=== PATIENT | male | born 1940 | race Caucasian/White ===

== ENCOUNTER 2018-01-30 09:03 | Observation (INO) | payer MEDICARE, OTHER ==
[~2018-01-30] VITALS: Ht 177.8 cm; Wt 114.0 kg
[2018-01-30] VITALS (9 sets, daily range): BP systolic 152–164; BP diastolic 54–70; PULSE 78–90; RESP 16–24; TEMP 96.4–98.6; O2SAT 90–98
[~2018-01-30 09:03] MED LIST: ALLO100 PO; AMLO5TAB2 PO; ASPI-183 PO; BYST5TAB2 PO; CYAN100 PO; LIPI80TA PO; LOTE40TA PO; MAGN400T2 PO; TAMS0.4C4 PO; VITA100064 PO
[2018-01-30 09:30] LABS: BILIRUBIN, URINE NEG (NEG); BLOOD, URINE MOD (NEG); GLUCOSE,URINE 100 mg/dL (NEG); KETONE, URINE NEG (NEG); NITRITE,URINE POS (NEG); URINE COLOR ORANGE (YELLW/STRAW); URINE LEUKOCYTE ESTERASE LARGE (NEG)
[2018-01-30] MEDS ORDERED: SODIUM CHLORIDE 0.9% FLUSH 10 ML FLUSH IV FLUSH PRN ×2 (09:30→11:00)
[2018-01-30] MEDS ORDERED: cefTRIAXone INJ 1,000 MG in SODIUM CHLORIDE 0.9% INJ 100 ML IV ONE (09:30)
[2018-01-30 09:38] LABS: AMORPHOUS SEDIMENT, URINE FEW; BACTERIA, URINE MOD /hpf; SQUAMOUS EPITHELIAL CELL URINE 0-5 /hpf (0-5); WBC, URINE INNUM /hpf (0-5); WHITE BLOOD CELL CLUMPS MOD
[2018-01-30 09:38] LABS: AUTOMATED NEUTROPHIL # 14.8 TH/MM3 (1.8-7.7); BASOPHIL # 0.2 TH/MM3 (0-0.2); BASOPHIL % 0.9 % (0.0-2.0); EOSINOPHIL # 0.1 TH/MM3 (0-0.4); EOSINOPHIL % 0.7 % (0.0-4.0); HEMATOCRIT 36.5 % (39.0-51.0); HEMOGLOBIN 12.1 GM/DL (13.0-17.0); LYMPH % 10.1 % (9.0-44.0); LYMPHOCYTE # 1.8 TH/MM3 (1.0-4.8); MEAN CELL VOLUME 99.8 FL (80.0-100.0); MEAN CORPUSCULAR HEMOGLOBIN 33.1 PG (27.0-34.0); MEAN CORPUSCULAR HGB CONC 33.2 % (32.0-36.0); MEAN PLATELET VOLUME 7.6 FL (7.0-11.0); MONO % 6.4 % (0.0-8.0); MONOCYTE # 1.2 TH/MM3 (0-0.9); NEUT % 81.9 % (16.0-70.0); PLATELET COUNT 310 TH/MM3 (150-450); RED BLOOD COUNT 3.66 MIL/MM3 (4.50-5.90); RED CELL DISTRIBUTION WIDTH 14.6 % (11.6-17.2); WHITE BLOOD COUNT 18.1 TH/MM3 (4.0-11.0)
[2018-01-30 09:54] LABS: ALBUMIN 3.1 GM/DL (3.4-5.0); BICARBONATE 21.7 MEQ/L (21.0-32.0); CALCIUM 8.4 MG/DL (8.5-10.1); GLUCOSE,RANDOM 192 MG/DL (74-106)
[2018-01-30 09:55] LABS: CHLORIDE 104 MEQ/L (98-107); SODIUM (NA) 136 MEQ/L (136-145)
[2018-01-30 09:57] LABS: ALT (GPT) 48 U/L (12-78); GLOMERULAR FILTRATION RATE 49 ML/MIN (>89)
[2018-01-30 09:59] LABS: TOTAL BILIRUBIN ADULT 0.7 MG/DL (0.2-1.0); TOTAL PROTEIN 7.4 GM/DL (6.4-8.2)
[2018-01-30 10:00] LABS: ALKALINE PHOSPHATASE 146 U/L (45-117)
[2018-01-30 10:03] LABS: BLOOD UREA NITROGEN 27 MG/DL (7-18)
[2018-01-30 10:04] LABS: AST (GOT) 29 U/L (15-37)
--- NOTE | 2018-01-30 10:35 | PD ---
HPI Chief Complaint: Complaint Time Seen by Provider: 09:16 Travel History International Travel<30 days: No Contact w/Intl Traveler<30days: No Traveled to known affect area: No History of Present Illness HPI 77 yo male complains of incontinence urinary frequency and dysuria. He reports dark urine. He's had no fever nausea or vomiting. He reports a similar was ultimately diagnosis sepsis. Duration has been about 24 hours. Timing constant. Severity moderate. No evidence of stool. No back pain. PFSH Past Medical History Arthritis: Yes Cancer: Yes (MULTIPLE MYELOMA IN REMISSION, SKIN CA) Cardiac Catheterization: Yes Cardiovascular Problems: Yes (hx of bypass) High Cholesterol: Yes Chest Pain: No COPD: Yes Diabetes: No Endocrine: No Gastrointestinal Disorders: No Genitourinary: Yes (hx of sepsis r/t uti) Hepatitis: No Hiatal Hernia: No Hypertension: Yes Immune Disorder: No Musculoskeletal: Yes (arthritis) Neurologic: No Psychiatric: No Reproductive: No Respiratory: Yes (COPD, sleep apnea, uses o2 prn) Myocardial Infarction: Yes Thyroid Disease: No Tetanus Vaccination: < 5 Years Influenza Vaccination: No Past Surgical History Abdominal Surgery: No AICD: No Cardiac Surgery: Yes (bypass X5, 1998) Coronary Artery Bypass Graft: Yes (5 WAY BYPASS-1998) Ear Surgery: No Endocrine Surgery: No Eye Surgery: Yes (CATARACT REMOVAL AND DETACHED RETINA left eye, right cataract ) Genitourinary Surgery: No Joint Replacement: No Oral Surgery: No Pacemaker: No Thoracic Surgery: No Tonsillectomy: Yes Other Surgery: Yes Social History Alcohol Use: Yes (STATES 1-2 DRINKS DAILY) Tobacco Use: No (quit in 1998 smoked 1 ppd) Substance Use: No Allergies-Medications (Allergen,Severity, Reaction): Coded Allergies: gatifloxacin (Unverified Allergy, Mild, REDNESS, 01/30/18) patient unaware of this allergy. Reported Meds & Prescriptions Reported Meds & Active Scripts Active Reported Zyloprim (Allopurinol) 100 Mg Tab 50 Mg PO HS Lotensin (Benazepril HCl) 40 Mg Tab 40 Mg PO DAILY Vitamin B12 (Cyanocobalamin) Unknown Strength Tab Unknown Dose PO DAILY Vitamin D3 (Cholecalciferol) 1,000 Unit Tab 1,000 Units PO DAILY Magnesium Oxide 400 Mg Tab 400 Mg PO DAILY Lipitor (Atorvastatin Calcium) 80 Mg Tab 80 Mg PO HS Aspirin 325 Mg Tab 325 Mg PO HS Tamsulosin (Tamsulosin HCl) 0.4 Mg Cap 0.4 Mg PO DAILY Amlodipine (Amlodipine Besylate) 5 Mg Tab 5 Mg PO HS Bystolic (Nebivolol) 5 Mg Tab 5 Mg PO HS Review of Systems Except as stated in HPI: all other systems reviewed are Neg Physical Exam Narrative GENERAL: 77-year-old male well-nourished well-developed pleasant Vital Signs Date Time Temp Pulse Resp B/P (MAP) Pulse Ox O2 Delivery O2 Flow Rate FiO2 01/30/18 10:08 78 16 160/54 (89) 93 Nasal Cannula 2.00 01/30/18 09:36 93 Nasal Cannula 2.00 01/30/18 09:35 90 Room Air 01/30/18 09:22 94 Room Air 01/30/18 09:07 98.2 87 20 160/70 (100) 98 SKIN: Warm and dry. HEAD: Atraumatic. Normocephalic. EYES: Pupils equal and round. No scleral icterus. No injection or drainage. ENT: No nasal bleeding or discharge. Mucous membranes pink and moist. NECK: Trachea midline. No JVD. CARDIOVASCULAR: Regular rate and rhythm. RESPIRATORY: No accessory muscle use. Clear to auscultation. Breath sounds equal bilaterally. GASTROINTESTINAL: No significant abdominal tenderness distention. Soft. MUSCULOSKELETAL: Extremities without clubbing, cyanosis, or edema. No obvious deformities. NEUROLOGICAL: Awake and alert. No obvious cranial nerve deficits. Motor grossly within normal limits. Five out of 5 muscle strength in the arms and legs. Normal speech. PSYCHIATRIC: Appropriate mood and affect; insight and judgment normal. Data Data Last Documented VS Vital Signs Date Time Temp Pulse Resp B/P (MAP) Pulse Ox O2 Delivery O2 Flow Rate FiO2 01/30/18 10:58 90 20 158/58 (91) 93 Nasal Cannula 2.00 01/30/18 09:07 98.2 Orders Orders Urinalysis - C+S If Indicated (01/30/18 09:05) Complete Blood Count With Diff (01/30/18 09:16) Comprehensive Metabolic Panel (01/30/18 09:16) Lipase (01/30/18 09:16) Iv Access Insert/Monitor (01/30/18:16) Ecg Monitoring (01/30/18:16) Oximetry (01/30/18 09:16) Ceftriaxone Inj (Rocephin Inj) (01/30/18 09:30) Sodium Chloride 0.9% Flush (Ns Flush) (01/30/18 09:30) Urine Culture (01/30/18 09:10) Admit Order (Ed Use Only) (01/30/18 ) Vital Signs (Adult) Q4H (01/30/18 10:58) Activity Oob With Assistance (01/30/18 10:58) Labs Laboratory Tests Test 01/30/18 09:10 01/30/18 09:30 Urine Collection Type CLEAN CATCH Urine Color ORANGE Urine Turbidity CLOUDY Urine pH 6.0 Urine Specific [place] 1.020 Urine Protein 300 OR GREATER mg/dL Urine Glucose (UA) 100 mg/dL Urine Ketones NEG mg/dL Urine Occult Blood MOD Urine Nitrite POS Urine Bilirubin NEG Urine Urobilinogen MG/DL Urine Leukocyte Esterase LARGE Urine RBC 10-14 /hpf Urine WBC INNUM /hpf Urine WBC Clumps MOD Urine Squamous Epithelial Cells 0-5 /hpf Urine Amorphous Sediment FEW Urine Bacteria MOD /hpf Microscopic Urinalysis Comment CULTURE INDICATED Urine Collection Time 0910 White Blood Count 18.1 TH/MM3 Red Blood Count 3.66 MIL/MM3 Hemoglobin 12.1 GM/DL Hematocrit 36.5 % Mean Corpuscular Volume 99.8 FL Mean Corpuscular Hemoglobin 33.1 PG Mean Corpuscular Hemoglobin Concent 33.2 % Red Cell Distribution Width 14.6 % Platelet Count 310 TH/MM3 Mean Platelet Volume 7.6 FL Neutrophils (%) (Auto) 81.9 % Lymphocytes (%) (Auto) 10.1 % Monocytes (%) (Auto) 6.4 % Eosinophils (%) (Auto) 0.7 % Basophils (%) (Auto) 0.9 % Neutrophils # (Auto) 14.8 TH/MM3 Lymphocytes # (Auto) 1.8 TH/MM3 Monocytes # (Auto) 1.2 TH/MM3 Eosinophils # (Auto) 0.1 TH/MM3 Basophils # (Auto) 0.2 TH/MM3 CBC Comment AUTO DIFF Differential Comment AUTO DIFF CONFIRMED Blood Urea Nitrogen 27 MG/DL Creatinine 1.40 MG/DL Random Glucose 192 MG/DL Total Protein 7.4 GM/DL Albumin 3.1 GM/DL Calcium Level 8.4 MG/DL Alkaline Phosphatase 146 U/L Aspartate Amino Transf (AST/SGOT) 29 U/L Alanine Aminotransferase (ALT/SGPT) 48 U/L Total Bilirubin 0.7 MG/DL Sodium Level 136 MEQ/L Potassium Level 4.6 MEQ/L Chloride Level 104 MEQ/L Carbon Dioxide Level 21.7 MEQ/L Anion Gap 10 MEQ/L Estimat Glomerular Filtration Rate 49 ML/MIN Lipase 118 U/L MDM Medical Decision Making Medical Screen Exam Complete: Yes Emergency Medical Condition: Yes Differential Diagnosis Metabolic disarray, sepsis, UTI Narrative Course CBC & BMP Diagram 01/30/18 09:30 Total Protein 7.4, Albumin 3.1 L, Calcium Level 8.4 L, Alkaline Phosphatase 146 H, Aspartate Amino Transf (AST/SGOT) 29, Alanine Aminotransferase (ALT/SGPT) 48 , Total Bilirubin 0.7 Rocephin started. Admission for ongoing IV antibiotics. d/w Dr Reynoso for [facility]. Diagnosis Primary Impression: UTI (urinary tract infection) Qualified Codes: N39.0 - Urinary tract infection, site not specified; R31.9 - Hematuria, unspecified Admitting Information Admitting Physician Requests: Observation Sylvester Burden MD Jan 30, 2018 10:35
[2018-01-30] MEDS ORDERED: NALOXONE HCL 0.4 MG/ML AMP IV PUSH PRN (11:00)
[2018-01-30] MEDS ORDERED: ONDANSETRON HCL 4 MG/2 ML VIAL IVP PRN (11:00)
[2018-01-30] MEDS ORDERED: MAGNESIUM HYDROXIDE SUSP 30 ML CUP PO PRN (11:00)
[2018-01-30] MEDS: LACTOBACILLUS ACIDOPHILUS TAB PO SCH ×2 (12:02→16:58)
[2018-01-30] MEDS: ENOXAPARIN SODIUM 40 MG/0.4 ML SYRINGE SQ SCH (12:03)
[2018-01-30] MEDS: SODIUM CHLOR 0.9% 1000 ML INJ 1,000 ML IV SCH ×2 (12:03→22:00)
--- NOTE | 2018-01-30 17:42 | HHI.HP ---
[facility] Primary Care Physician Bautista Ortiz MD Admission Diagnosis UTI Diagnoses: (1) UTI (urinary tract infection) Chief Complaint: Dysuria and frequency Travel History International Travel<30 Days: No Contact w/Intl Traveler <30 Da: No Traveled to Known Affected Are: No Sepsis Criteria SIRS Criteria (2 or more): RR > 20 or PaCO2 < 32, WBC > 79464, < 4000 or > 10 % bands Sepsis Criteria (SIRS+source): Infect source susp/known Severe Sepsis (+one): Acute Oliguria/Renal Failure Criteria Outcome: Meets sepsis criteria History of Present Illness This is a pleasant 77-year-old male patient with a known medical history of hyperlipidemia, COPD, CAD with CABG, hypertension and arthritis in multiple myeloma in remission who presented to the ED with complaints of urinary incontinence, frequency and dysuria. Patient states that yesterday afternoon he developed a pain in his bladder, with inability to control his urine. Patient states that the pain was becoming unbearable, rating the pain an 8 out of 10 on pain scale and patient waking up every couple hours during the night. He does report that his urine has been dark. Denies any hematuria. Denies any recent illness including fever, chills, cough, headache, shortness of breath, diarrhea, abdominal pain, nausea or vomiting. Patient has been eating and drinking with good appetite. Patient denies any recent biotic use. Does not follow with urologist. PCP is Dr. Ortiz. [employer] Dr. Jones. Pulmonology Dr. Vivas, has ordered home O2 but does not use it most time. Patient does state one year ago he was in the ICU for admission of complicated UTI. Since that time patient has been doing well. Review of Systems Constitutional: DENIES: Fatigue, Fever, Chills Eyes: DENIES: Blurred vision, Diplopia Respiratory: DENIES: Cough, Sputum production, Shortness of breath Cardiovascular: DENIES: Chest pain Gastrointestinal: DENIES: Abdominal pain, Black stools, Bloody stools, Constipation, Diarrhea, Nausea, Vomiting Genitourinary: COMPLAINS OF: Urinary frequency, Urinary incontinence, Urgency, Dysuria, DENIES: Hematuria Psychiatric: DENIES: Anxiety Except as stated in HPI: all other systems reviewed are Neg Past Family Social History Past Medical History History of UTI Hyperlipidemia COPD with home O2 ordered, patient states he does not use Arthritis Multiple myeloma in remission History of skin cancer CAD with history of CABG Sleep apnea Past Surgical History Left hip replacement Cataract removal CABG 1988 Tonsillectomy Reported Medications Active Reported Zyloprim (Allopurinol) 100 Mg Tab 50 Mg PO HS Lotensin (Benazepril HCl) 40 Mg Tab 40 Mg PO DAILY Vitamin B12 (Cyanocobalamin) Unknown Strength Tab Unknown Dose PO DAILY Vitamin D3 (Cholecalciferol) 1,000 Unit Tab 1,000 Units PO DAILY Magnesium Oxide 400 Mg Tab 400 Mg PO DAILY Lipitor (Atorvastatin Calcium) 80 Mg Tab 80 Mg PO HS Aspirin 325 Mg Tab 325 Mg PO HS Tamsulosin (Tamsulosin HCl) 0.4 Mg Cap 0.4 Mg PO DAILY Amlodipine (Amlodipine Besylate) 5 Mg Tab 5 Mg PO HS Bystolic (Nebivolol) 5 Mg Tab 5 Mg PO HS Allergies: Coded Allergies: gatifloxacin (Unverified Allergy, Mild, REDNESS, 01/30/18) patient unaware of this allergy. Active Ordered Medications Current Medications Medications (Trade) Dose Ordered Sig/Jazzmine Route Start Time Stop Time Status Last Admin Sodium Chloride 1,000 ml @ 100 mls/hr Q10H IV 01/30/18 12:00 01/30/18 12:03 (NS Flush) 2 ml UNSCH PRN IV FLUSH 01/30/18 11:00 (NS Flush) 2 ml BID IV FLUSH 01/30/18 21:00 (Zofran Inj) 4 mg Q6H PRN IVP 01/30/18 11:00 (Lovenox Inj) 40 mg Q24H SQ 01/30/18 12:00 01/30/18 12:03 (Narcan Inj) 0.4 mg UNSCH PRN IV PUSH 01/30/18 11:00 (Milk Of Magnesia Liq) 30 ml Q12H PRN PO 01/30/18 11:00 (Lactinex) 1 tab TID PO 01/30/18 13:00 01/30/18 16:58 Ceftriaxone Sodium 1000 mg/ Sodium Chloride 100 ml @ 200 mls/hr Q24H IV 01/31/18 09:00 (Zyloprim) 50 mg HS PO 01/30/18 21:00 (Norvasc) 5 mg HS PO 01/30/18 21:00 (Aspirin) 325 mg HS PO 01/30/18 21:00 (Vitamin D3) 1,000 units DAILY PO 01/31/18 09:00 (Mag-Ox) 400 mg DAILY PO 01/31/18 09:00 (Bystolic) 5 mg HS PO 01/30/18 21:00 (Flomax) 0.4 mg DAILY PO 01/31/18 09:00 (Prinivil) 40 mg DAILY PO 01/31/18 09:00 (Lipitor) 80 mg HS PO 01/30/18 21:00 Family History Maternal medical history significant for unspecified cancer. Paternal medical history significant for hypertension and from a stroke. Social History Patient denies any current tobacco use, states he quit in 1998 prior to his CABG. Patient does admit to drinking 1-2 alcoholic drinks per day. Denies any illicit drug use. Physical Exam Vital Signs Vital Signs Date Time Temp Pulse Resp B/P (MAP) Pulse Ox O2 Delivery O2 Flow Rate FiO2 01/30/18 16:00 96.4 83 24 164/70 (101) 93 01/30/18 12:00 96.4 87 24 156/69 (98) 95 01/30/18 11:43 01/30/18 10:58 90 20 158/58 (91) 93 Nasal Cannula 2.00 01/30/18 10:08 78 16 160/54 (89) 93 Nasal Cannula 2.00 01/30/18 09:36 93 Nasal Cannula 2.00 01/30/18 09:35 90 Room Air 01/30/18 09:22 94 Room Air 01/30/18 09:07 98.2 87 20 160/70 (100) 98 Physical Exam GENERAL: Well-developed, obese male patient in NAD. On supplemental O2 SKIN: Warm and dry. No rash. HEAD: Normocephalic. Atraumatic. EYES: Pupils equal and round. No scleral icterus. No injection or drainage. ENT: No nasal bleeding or discharge. Mucous membranes pink and moist. NECK: Supple. Trachea midline. CARDIOVASCULAR: Regular rate and rhythm. S1, S2 noted. No murmur appreciated. RESPIRATORY: No accessory muscle use. Clear to auscultation. Breath sounds equal bilaterally. GASTROINTESTINAL: Abdomen soft, non-tender, nondistended. Normoactive bowel sounds x4. : No CVA tenderness bilaterally. MUSCULOSKELETAL: No obvious deformities. Extremities without clubbing, cyanosis , or edema. NEUROLOGICAL: Awake and alert. No obvious cranial nerve deficits. Motor grossly within normal limits. 5/5 muscle strength in bilateral upper and lower extremities. Normal speech. Laboratory Laboratory Tests Test 01/30/18 09:10 01/30/18 09:30 01/30/18 11:15 01/30/18 16:28 Urine Collection Type CLEAN CATCH Urine Color ORANGE Urine Turbidity CLOUDY Urine pH 6.0 Urine Specific [place] 1.020 Urine Protein 300 OR GREATER Urine Glucose (UA) 100 Urine Ketones NEG Urine Occult Blood MOD Urine Nitrite POS Urine Bilirubin NEG Urine Urobilinogen Urine Leukocyte Esterase LARGE Urine RBC 10-14 Urine WBC INNUM Urine WBC Clumps MOD Urine Squamous Epithelial Cells 0-5 Urine Amorphous Sediment FEW Urine Bacteria MOD Microscopic Urinalysis Comment CULTURE INDICATED Urine Collection Time 0910 White Blood Count 18.1 Red Blood Count 3.66 Hemoglobin 12.1 Hematocrit 36.5 Mean Corpuscular Volume 99.8 Mean Corpuscular Hemoglobin 33.1 Mean Corpuscular Hemoglobin Concent 33.2 Red Cell Distribution Width 14.6 Platelet Count 310 Mean Platelet Volume 7.6 Neutrophils (%) (Auto) 81.9 Lymphocytes (%) (Auto) 10.1 Monocytes (%) (Auto) 6.4 Eosinophils (%) (Auto) 0.7 Basophils (%) (Auto) 0.9 Neutrophils # (Auto) 14.8 Lymphocytes # (Auto) 1.8 Monocytes # (Auto) 1.2 Eosinophils # (Auto) 0.1 Basophils # (Auto) 0.2 CBC Comment AUTO DIFF Differential Comment AUTO DIFF CONFIRMED Blood Urea Nitrogen 27 Creatinine 1.40 Random Glucose 192 Total Protein 7.4 Albumin 3.1 Calcium Level 8.4 Alkaline Phosphatase 146 Aspartate Amino Transf (AST/SGOT) 29 Alanine Aminotransferase (ALT/SGPT) 48 Total Bilirubin 0.7 Sodium Level 136 Potassium Level 4.6 Chloride Level 104 Carbon Dioxide Level 21.7 Anion Gap 10 Estimat Glomerular Filtration Rate 49 Lipase 118 Total Creatine Kinase 55 64 Date/Time Source Procedure Growth Status 01/30/18 09:10 Urine Clean Catch Urine Culture Pending Received Result Diagram: [id number] Septic Shock Reassessment Septic shock perfusion: reassessment completed Caprini VTE Risk Assessment Caprini VTE Risk Assessment: Mod/High Risk (score >= 2) Caprini Risk Assessment Model Point Value = 1 Point Value = 2 Point Value = 3 Point Value = 5 Age 41-60 Minor surgery BMI > 25 kg/m2 Swollen legs Varicose veins or History of unexplained or recurrent spontaneous Oral contraceptives or hormone replacement Sepsis (< 1 month) Serious lung disease, including pneumonia (< 1 month) Abnormal pulmonary function Acute myocardial infarction Congestive heart failure (< 1 month) History of inflammatory bowel disease Medical patient at bed rest Age 61-74 Arthroscopic surgery Major open surgery (> 45 min) Laparoscopic surgery (> 45 min) Malignancy Confined to bed (> 72 hours) Immobilizing plaster cast Central venous access Age >= 75 History of VTE Family history of VTE Factor V Leiden Prothrombin [id number] Lupus anticoagulant Anticardiolipin antibodies Elevated serum homocysteine Heparin-induced thrombocytopenia Other congenital or acquired thrombophilia Stroke (< 1 month) Elective arthroplasty Hip, pelvis, or leg fracture Acute spinal cord injury (< 1 month) Prophylaxis Regimen Total Risk Factor Score Risk Level Prophylaxis Regimen 0-1 Low Early ambulation 2 Moderate Order ONE of the following: *Sequential Compression Device (SCD) *Heparin 5000 units SQ BID 3-4 Higher Order ONE of the following medications: *Heparin 5000 units SQ TID *Enoxaparin/Lovenox 40 mg SQ daily (WT < 150 kg, CrCl > 30 mL/min) *Enoxaparin/Lovenox 30 mg SQ daily (WT < 150 kg, CrCl > 10-29 mL/min) *Enoxaparin/Lovenox 30 mg SQ BID (WT < 150 kg, CrCl > 30 mL/min) AND/OR *Sequential Compression Device (SCD) 5 or more Highest Order ONE of the following medications: *Heparin 5000 units SQ TID (Preferred with Epidurals) *Enoxaparin/Lovenox 40 mg SQ daily (WT < 150 kg, CrCl > 30 mL/min) *Enoxaparin/Lovenox 30 mg SQ daily (WT < 150 kg, CrCl > 10-29 mL/min) *Enoxaparin/Lovenox 30 mg SQ BID (WT < 150 kg, CrCl > 30 mL/min) AND *Sequential Compression Device (SCD) Assessment and Plan Assessment and Plan This is a pleasant 77-year-old male patient with a known medical history of hyperlipidemia, COPD, CAD with CABG, hypertension and arthritis in multiple myeloma in remission who presented to the ED with complaints of urinary incontinence, frequency and dysuria. Sepsis suspect secondary to UTI with presence of urinary urgency, incontinence and frequency Abnormal UA suspect secondary to above Acute kidney injury suspect secondary to above Presence of leukocytosis, white blood cell 18,000, tachypnea, source urinary tract UA showing large amount of white blood cells and leukocyte esterase. Urine culture pending. Follow growth. Continue on IV ceftriaxone for now. Will add lactobacillus. Continue IV fluids, ensure hydration. Creatinine 1.4 on presentation. No recent lab work, patient denies any history of chronic kidney disease. Previous history of labs reviewed, creatinine 0.66 in 2016. Follow labs in a.m. Supplemental O2 as needed. Supportive care. Hypertension, chronic: Continue home Bystolic and amlodipine and Lotensin. Monitor BP trends. Systolic in the 160s. Elevated random glucose: Glucose 192. Patient denies any history of diabetes. Hemoglobin A1c pending. Follow. History of CAD with CABG: Continue aspirin. Hyperlipidemia, chronic: Continue home Lipitor. History of BPH: Continue home Flomax. DVT prophylaxis: SCDs. Lovenox. Problem Qualifiers (1) UTI (urinary tract infection): Qualified Codes: N39.0 - Urinary tract infection, site not specified; R31.9 - Hematuria, unspecified Josephine Callaway Jan 30, 2018 17:42
[2018-01-30] MEDS: SODIUM CHLORIDE 0.9% FLUSH 10 ML FLUSH IV FLUSH SCH (20:26)
[2018-01-30] MEDS ORDERED: NEBIVOLOL 5 MG TAB PO SCH (21:00)
[2018-01-30] MEDS ORDERED: ALLOPURINOL 100 MG TAB PO SCH (21:00)
[2018-01-30] MEDS ORDERED: ATORVASTATIN 80 MG TAB PO SCH (21:00)
[2018-01-30] MEDS ORDERED: ATORVASTATIN 40 MG TAB PO SCH (21:00)
[2018-01-30] MEDS ORDERED: ASPIRIN 325 MG TAB PO SCH (21:00)
[2018-01-30] MEDS ORDERED: amLODIPine BESYLATE 5 MG TAB PO SCH (21:00)
[2018-01-30] MEDS ORDERED: RESP: ALBUTEROL 2.5 MG/IPRATROPIUM 0.5 MG NEB (PRN) NEB (21:15)
[2018-01-31 01:41] VITALS: BP 144/73; PULSE 76; RESP 20; TEMP 98; O2SAT 92
[2018-01-31 04:10] VITALS: BP 150/68; PULSE 70; RESP 18; TEMP 98.6; O2SAT 95
[2018-01-31 08:00] VITALS: BP 140/63; PULSE 74; RESP 24; TEMP 96.9; O2SAT 92
[2018-01-31] MEDS: SODIUM CHLOR 0.9% 1000 ML INJ 1,000 ML IV SCH (08:00)
[2018-01-31 08:27] LABS: AUTOMATED NEUTROPHIL # 8.9 TH/MM3 (1.8-7.7); BASOPHIL # 0.1 TH/MM3 (0-0.2); BASOPHIL % 0.4 % (0.0-2.0); EOSINOPHIL # 0.3 TH/MM3 (0-0.4); EOSINOPHIL % 2.3 % (0.0-4.0); HEMATOCRIT 33.7 % (39.0-51.0); LYMPH % 19.1 % (9.0-44.0); LYMPHOCYTE # 2.6 TH/MM3 (1.0-4.8); MEAN CELL VOLUME 99.9 FL (80.0-100.0); MEAN CORPUSCULAR HEMOGLOBIN 32.6 PG (27.0-34.0); MEAN CORPUSCULAR HGB CONC 32.6 % (32.0-36.0); MEAN PLATELET VOLUME 8.3 FL (7.0-11.0); MONO % 12.1 % (0.0-8.0); MONOCYTE # 1.7 TH/MM3 (0-0.9); NEUT % 66.1 % (16.0-70.0); PLATELET COUNT 304 TH/MM3 (150-450); RED BLOOD COUNT 3.37 MIL/MM3 (4.50-5.90); RED CELL DISTRIBUTION WIDTH 14.7 % (11.6-17.2); WHITE BLOOD COUNT 13.6 TH/MM3 (4.0-11.0)
[2018-01-31 08:46] LABS: BICARBONATE 24.3 MEQ/L (21.0-32.0); CALCIUM 8.1 MG/DL (8.5-10.1)
[2018-01-31 08:49] LABS: CREATININE 1.1 MG/DL (0.60-1.30)
[2018-01-31] MEDS ORDERED: MAGNESIUM OXIDE 400 MG TAB PO SCH (09:00)
[2018-01-31] MEDS ORDERED: LISINOPRIL 20 MG TAB PO SCH (09:00)
[2018-01-31] MEDS ORDERED: CHOLECALCIFEROL (VIT D3) 1000 UNIT TAB PO SCH (09:00)
[2018-01-31] MEDS ORDERED: cefTRIAXone INJ 1,000 MG in SODIUM CHLORIDE 0.9% INJ 100 ML IV SCH (09:00)
[2018-01-31] MEDS: SODIUM CHLORIDE 0.9% FLUSH 10 ML FLUSH IV FLUSH SCH (09:00)
[2018-01-31] MEDS ORDERED: TAMSULOSIN HCL 0.4 MG CAP PO SCH (09:00)
[2018-01-31] MEDS: LACTOBACILLUS ACIDOPHILUS TAB PO SCH ×2 (09:15→13:57)
[2018-01-31 10:00] VITALS: O2SAT 96
--- NOTE | 2018-01-31 11:46 | HHI.DCPOC ---
Discharge Care Plan Diagnosis: (1) UTI (urinary tract infection) Goals to Promote Your Health * To prevent worsening of your condition and complications * To maintain your health at the optimal level Directions to Meet Your Goals Take your medications as prescribed Follow your dietary instruction Follow activity as directed Keep your appointments as scheduled Take your immunizations and boosters as scheduled If your symptoms worsen call your PCP, if no PCP go to Urgent Care Center or Emergency Room Smoking is Dangerous to Your Health. Avoid second hand smoke Call the 24-hour hour crisis hotline for domestic abuse at Josephine Callaway Jan 31, 2018 11:46
--- NOTE | 2018-01-31 11:46 | HHI.PR ---
Subjective Remarks Follow-up UTI. Patient seen and examined, lying in bed comfortably, states that his symptoms have improved. Denies any more dysuria or pain. No hematuria noted overnight. Adequate [place]. Afebrile overnight. Vital signs stable. Patient on oxygen as ordered for home. Will resume and have patient follow-up with information security systems instructor. Objective Vitals Vital Signs Date Time Temp Pulse Resp B/P (MAP) Pulse Ox O2 Delivery O2 Flow Rate FiO2 01/31/18 08:00 96.9 74 24 140/63 (88) 92 01/31/18 04:10 98.6 70 18 150/68 (95) 95 01/31/18 01:41 98.0 76 20 144/73 (96) 92 01/30/18 21:34 94 Nasal Cannula 2.00 01/30/18 21:13 98.6 86 22 152/58 (89) 93 01/30/18 16:00 96.4 83 24 164/70 (101) 93 01/30/18 12:00 96.4 87 24 156/69 (98) 95 I/O 01/30/18 01/30/18 01/30/18 01/31/18 01/31/18 01/31/18 07:00 15:00 23:00 07:00 15:00 23:00 Intake Total 340 ml 560 ml Output Total 1200 ml Balance 340 ml 560 ml -1200 ml Intake Oral 240 ml IV Total 100 ml 560 ml Output Urine Total 1200 ml # Voids 1 Result Diagram: 01/31/18 0745 01/31/18 0745 Objective Remarks GENERAL: Well-developed, obese male patient in NAD. On supplemental O2 SKIN: Warm and dry. No rash. HEAD: Normocephalic. Atraumatic. EYES: Pupils equal and round. No scleral icterus. No injection or drainage. ENT: No nasal bleeding or discharge. Mucous membranes pink and moist. NECK: Supple. Trachea midline. CARDIOVASCULAR: Regular rate and rhythm. S1, S2 noted. No murmur appreciated. RESPIRATORY: No accessory muscle use. Clear to auscultation. Breath sounds equal bilaterally. GASTROINTESTINAL: Abdomen soft, non-tender, nondistended. Normoactive bowel sounds x4. : No CVA tenderness bilaterally. Condom cath MUSCULOSKELETAL: No obvious deformities. Extremities without clubbing, cyanosis , or edema. NEUROLOGICAL: Awake and alert. No obvious cranial nerve deficits. Motor grossly within normal limits. 5/5 muscle strength in bilateral upper and lower extremities. Normal speech. A/P Problem List: (1) UTI (urinary tract infection) ICD Code: N39.0 - Urinary tract infection, site not specified Status: Acute Assessment and Plan This is a pleasant 77-year-old male patient with a known medical history of hyperlipidemia, COPD, CAD with CABG, hypertension and arthritis in multiple myeloma in remission who presented to the ED with complaints of urinary incontinence, frequency and dysuria. Sepsis suspect secondary to UTI with presence of urinary urgency, incontinence and frequency Abnormal UA suspect secondary to above Acute kidney injury suspect secondary to above. Improved. Presence of leukocytosis, white blood cell 18,000, tachypnea, source urinary tract. Leukocytosis improving. UA showing large amount of white blood cells and leukocyte esterase. Urine culture. Was placed on ceftriaxone. Given Levaquin prescription for discharge. All symptoms have improved. Creatinine 1.4 on presentation, 1.1 today. No recent lab work, patient denies any history of chronic kidney disease. Previous history of labs reviewed , creatinine 0.66 in 2016. Supplemental O2 as needed, patient is on home O2. Hypertension, chronic: Continue home Bystolic and amlodipine and Lotensin. Monitor BP trends. Systolic in the 160s. Elevated random glucose: Glucose 192. Patient denies any history of diabetes. Hemoglobin A1c pending. Follow. Will have patient follow-up with PCP upon discharge. History of CAD with CABG: Continue aspirin. Hyperlipidemia, chronic: Continue home Lipitor. History of BPH: Continue home Flomax. DVT prophylaxis: SCDs. Lovenox. Discharge Planning Patient discharged today with prescription for Levaquin. All symptoms have resolved. Encouraged to follow-up with PCP on discharge. Have PCP follow hemoglobin A1c records, possibility of prediabetes/diabetes. Patient on home O2 , states he occasionally uses oxygen, encouraged to follow-up with pulmonology upon discharge. Problem Qualifiers (1) UTI (urinary tract infection): Qualified Codes: N39.0 - Urinary tract infection, site not specified; R31.9 - Hematuria, unspecified Josephine Callaway Jan 31, 2018 11:46
[2018-01-31] MEDS ORDERED: LEVA750T9 PO (11:53)
[2018-01-31 12:00] VITALS: BP 137/61; PULSE 61; RESP 24; TEMP 96.2; O2SAT 93
[2018-01-31] MEDS: ENOXAPARIN SODIUM 40 MG/0.4 ML SYRINGE SQ SCH (12:00)
[2018-02-01 16:34] LABS: HEMOGLOBIN A1C 6.2 % (4.3-6.0)
== END 2018-01-31 14:08 | disposition home or self-care (01) ==
LOC: PHED 09:03 → INTOOBSV 11:00 → PHEDA 11:00 → PH3B 11:40
PROVIDERS: ADMIT Hospitalist; ATTEND Hospitalist
DX: N39.0 Urinary tract infection, site not specified (principal); B95.2 Enterococcus as the cause of diseases classified elsewhere; I25.10 Atherosclerotic heart disease of native coronary artery without angina pectoris; J44.9 Chronic obstructive pulmonary disease, unspecified; I25.2 Old myocardial infarction; I10 Essential (primary) hypertension; C90.01 Multiple myeloma in remission; E78.00 Pure hypercholesterolemia, unspecified; G47.30 Sleep apnea, unspecified; N17.9 Acute kidney failure, unspecified; E66.9 Obesity, unspecified; Z68.36 Body mass index [BMI] 36.0-36.9, adult; N40.1 Benign prostatic hyperplasia with lower urinary tract symptoms; N39.498 Other specified urinary incontinence; M19.90 Unspecified osteoarthritis, unspecified site; Z87.891 Personal history of nicotine dependence; Z99.81 Dependence on supplemental oxygen; Z95.1 Presence of aortocoronary bypass graft; Z79.82 Long term (current) use of aspirin; Z79.899 Other long term (current) drug therapy; Z85.828 Personal history of other malignant neoplasm of skin
CPT/HCPCS: 80048; 80053; 81001; 82550; 83036; 83690; 85025; 87077; 87086; 87186; 94664; 96361; 96365; 96372; 99285; G0378; J0696; J1650; J7030